=== PATIENT | male | born 1970 | race Caucasian/White ===

== ENCOUNTER 2017-10-15 22:44 | Emergency (ER) | payer SELFPAY ==
[~2017-10-15] VITALS: Ht 170.2 cm; Wt 81.5 kg
[2017-10-15 23:10] VITALS: BP 158/112
== END 2017-10-16 00:35 | disposition left against medical advice (07) ==
LOC: EMS 22:46
DX: K08.89 Other specified disorders of teeth and supporting structures (principal); F17.210 Nicotine dependence, cigarettes, uncomplicated; Z53.21 Procedure and treatment not carried out due to patient leaving prior to being seen by health care provider

== ENCOUNTER 2017-10-16 20:37 | Emergency (ER) | payer MEDICAID ==
[~2017-10-16] VITALS: Ht 170.2 cm; Wt 81.8 kg
[2017-10-16] MEDS ORDERED: TRANEXAMIC ACID 1,000 MG/10 ML VIAL IVP ONE (22:00)
[2017-10-16 23:30] VITALS: BP 189/108
== END 2017-10-16 23:39 | disposition home or self-care (01) ==
LOC: EMS 20:38
DX: K08.89 Other specified disorders of teeth and supporting structures (principal); R04.1 Hemorrhage from throat; F17.210 Nicotine dependence, cigarettes, uncomplicated
CPT/HCPCS: 96374; 99284; J3490

== ENCOUNTER 2019-07-28 10:39 | Emergency (ER) | payer SELFPAY ==
[~2019-07-28] VITALS: Ht 170.2 cm; Wt 86.4 kg
[2019-07-28] MEDS ORDERED: LIB5 PO (10:48)
[2019-07-28 13:09] VITALS: BP 144/86
== END 2019-07-28 13:16 | disposition home or self-care (01) ==
LOC: EMS 10:40
DX: R76.11 Nonspecific reaction to tuberculin skin test without active tuberculosis (principal)

== ENCOUNTER 2020-09-17 13:31 | Emergency (ER) | payer SELFPAY ==
[~2020-09-17] VITALS: Ht 170.2 cm; Wt 77.0 kg
[~2020-09-17 13:31] MED LIST: LIB5 PO
[2020-09-17 13:35] VITALS: BP 123/77
== END 2020-09-17 16:43 | disposition left against medical advice (07) ==
LOC: EMS 13:31
DX: H57.12 Ocular pain, left eye (principal); Z53.21 Procedure and treatment not carried out due to patient leaving prior to being seen by health care provider